=== PATIENT | male | born 1970 | race Two or more races ===

== ENCOUNTER 2024-11-19 06:36 | Day surgery (SDC) | payer OTHER ==
[2024-11-19] MEDS ORDERED: MIDAZOLAM HCL 2 MG/2 ML VIAL IV ONE (10:30)
[2024-11-19] MEDS ORDERED: DIPHENHYDRAMINE HCL 50 MG/ML VIAL 1ML IV ONE (10:30)
[2024-11-19] MEDS ORDERED: fentaNYL CITRATE 50 MCG/ML AMPUL IV PUSH ONE (10:30)
== END 2024-11-19 12:45 | disposition home or self-care (01) ==
LOC: AMB-ENDOS 06:36
PROVIDERS: ATTEND Surgery
DX: D12.3 Benign neoplasm of transverse colon (principal); K63.5 Polyp of colon; K57.30 Diverticulosis of large intestine without perforation or abscess without bleeding